=== PATIENT | male | born 1970 | race Two or more races ===

== ENCOUNTER 2020-09-10 21:32 | Observation (INO) | payer SELFPAY ==
[~2020-09-10] VITALS: Ht 167.6 cm; Wt 72.7 kg
--- NOTE | 2020-09-10 21:41 | NUR ---
PT BIBA FOR ANXIETY AND PARANOIA, PT STATES THAT PEOPLE ARE FOLLOWING HIM, PT STATES HE THERE ARE A LOT OF PEOPLE FOLLOWING HIM, PT STATES PEOPLE FOLLOW HIM IN CARS BUT PT CANNOT SEES THE PEOPLES FACES IN THE CARS, PT DENIES SI/SH, PT DENIES AUDITORY AND VISUAL HALLUCINATIONS AT THIS TIME
[2020-09-10 22:49] LABS: BASOPHILS % (AUTO) 1 % (0-1); EOSINOPHILS % (AUTO) 0 % (1-7); LYMPHOCYTES % (AUTO) 10 % (22-44); MEAN CORPUSCULAR HGB CONC 35.5 g/dL (33.2-36.2); MEAN PLATELET VOLUME 8.8 fL (7.4-10.4); MONOCYTES % (AUTO) 8 % (2-9); NEUTROPHILS % (AUTO) 81 % (42-75); PLATELET COUNT 211 x10^3/uL (130-400); RED BLOOD COUNT 4.63 x10^6/uL (4.38-5.82); RED CELL DISTRIBUTION WIDTH 12.8 % (9.4-14.8)
[2020-09-10 22:58] LABS: ALANINE AMINOTRANSFERASE 57 U/L (12-78); ALBUMIN 4.3 g/dL (3.4-5.0); ANION GAP 9 mmol/L (5-15); CHLORIDE 108 mmol/L (98-107); SALICYLATE LEVEL < 1.7 mg/dL (2.8-20.0)
[2020-09-10 23:00] LABS: ALKALINE PHOSPHATASE 70 U/L (45-117); BILIRUBIN,TOTAL 0.9 mg/dL (0.2-1.0); CREATININE 0.91 mg/dL (0.7-1.3); TOTAL PROTEIN 8.7 g/dL (6.4-8.2)
[2020-09-10] MEDS ORDERED: PLEASE ENTER ALLERGIES MC SCH (23:00)
[2020-09-10] MEDS ORDERED: LORazepam 1MG TABLET PO ONE (23:00)
[2020-09-10] MEDS ORDERED: LORazepam 1MG TABLET ONE (23:05)
--- NOTE | 2020-09-10 23:09 | NUR ---
PT LAYING IN BED, A/OX4, PT STILL EXPERIENCING ANXIETY AND PARANOIA, PT GIVEN PO MEDS PER MD ORDERS, PT IS CALM AND COOPERATIVE, NAD AT THIS TIME
[2020-09-10 23:20] LABS: AMPHETAMINE SCREEN, URINE Positive (Negative); BARBITURATE SCREEN, URINE Negative (Negative); BENZODIAZEPINE SCREEN, URINE Negative (Negative); CANNABINOID SCREEN, URINE Negative (Negative); COCAINE SCREEN, URINE Negative (Negative); METHADONE SCREEN, URINE Negative (Negative); OPIATE SCREEN, URINE Negative (Negative)
--- NOTE | 2020-09-11 00:10 | NUR ---
PT LAYING IN BED, PT A/OX3, PT STATES HE FEELS BETTER NOW, NAD AT THIS TIME, ALL NEEDS IN REACH, CALL LIGHT IN REACH
--- NOTE | 2020-09-11 01:13 | NUR ---
TELS MONITOR AT BEDSIDE
--- NOTE | 2020-09-11 01:13 | NUR ---
REPORT FROM WARD REY
--- NOTE | 2020-09-11 02:10 | NUR ---
pt resting in bed, NADN, WCTM
--- NOTE | 2020-09-11 02:59 | NUR ---
PT AMBULATORY TO RESTROOM WITH STEADY GAIT
[2020-09-11 04:42] VITALS: BP 160/111
--- NOTE | 2020-09-11 04:51 | NUR ---
Pt on tele psych consult
--- NOTE | 2020-09-11 05:35 | NUR ---
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
== END 2020-09-11 05:56 | disposition home or self-care (01) ==
LOC: ED 22:00 → EDIP 09-11 00:34
PROVIDERS: ADMIT Emergency Medicine; ATTEND Emergency Medicine
DX: F15.151 Other stimulant abuse with stimulant-induced psychotic disorder with hallucinations (principal); F22 Delusional disorders; F41.9 Anxiety disorder, unspecified; Z79.899 Other long term (current) drug therapy
CPT/HCPCS: 36415; 80053; 80299; 80307; 80320; 80329; 85025; 99284; G0378; G0480